=== PATIENT | male | born 1960 | race Caucasian/White ===

== ENCOUNTER 2018-11-20 22:58 | Observation (INO) | payer OTHER ==
[2018-11-20] MEDS ORDERED: Sodium Chloride 0.9% 10 ML Syringe FLUSH PRN (23:10)
--- NOTE | 2018-11-20 23:16 | EDM.PDOC ---
ED HPI GENERAL MEDICAL PROBLEM - General Chief Complaint: Cardiovascular Problem Stated Complaint: CHEST PAIN Time Seen by Provider: 11/20/18 22:58 Source of Information: Reports: Patient, Family, RN History Limitations: Reports: No Limitations - History of Present Illness INITIAL COMMENTS - FREE TEXT/NARRATIVE: 58 yr male presents with chest pain tonight, started while resting, took nitro x 3 tablets and pain was relieved. States the first couple nitro were doses and the last dose was not . EKG with NSR noted. He does have a history of stent and open heart surgery about 6 years ago. Saline lock started. Labs for CBC, troponin, CMP and TSH. is with him and no return of chest pain at this time. - Related Data Allergies Allergy/AdvReac Type Severity Reaction Status Date / Time acetaminophen [From Vicodin] AdvReac Nausea and Verified 11/20/18 23:27 Vomiting codeine AdvReac Nausea and Verified 11/20/18 23:27 Vomiting hydrocodone [From Vicodin] AdvReac Nausea and Verified 11/20/18 23:27 Vomiting Home Meds: Home Meds Aspirin [Adult Low Dose Aspirin EC] 81 mg PO DAILY 11/20/18 [History] Clopidogrel [Plavix] 75 mg PO DAILY 11/20/18 [History] Glucosamine [Glucosamine Sulfate] 500 mg PO DAILY 11/20/18 [History] L.acidoph,Paracasei, B.lactis [Probiotic] 1 cap PO DAILY 11/20/18 [History] Lisinopril 20 mg PO DAILY 11/20/18 [History] Loratadine 10 mg PO DAILY 11/20/18 [History] Montelukast [Singulair] 10 mg PO DAILY 11/20/18 [History] Pantoprazole [ProTONIX Granules] 40 mg PO DAILY 11/20/18 [History] Ubidecarenone [Co Q-10] 100 mg PO DAILY 11/20/18 [History] amLODIPine [Norvasc] 5 mg PO BID 11/20/18 [History] atorvaSTATin [Lipitor] 40 mg PO DAILY 11/20/18 [History] ED ROS GENERAL - Review of Systems Review Of Systems: See Below Constitutional: Reports: No Symptoms HEENT: Reports: No Symptoms Respiratory: Denies: Shortness of Breath, Wheezing Cardiovascular: Reports: Chest Pain. Denies: Dyspnea on Exertion, Edema GI/Abdominal: Reports: No Symptoms Musculoskeletal: Reports: No Symptoms Skin: Reports: No Symptoms Neurological: Reports: No Symptoms Psychiatric: Reports: No Symptoms ED EXAM, GENERAL - Physical Exam Exam: See Below Exam Limited By: No Limitations General Appearance: Alert, No Apparent Distress Ears: Hearing Grossly Normal Throat/Mouth: Normal Voice, No Airway Compromise Head: Atraumatic, Normocephalic Neck: Supple, Non-Tender, Full Range of Motion Respiratory/Chest: No Respiratory Distress, Lungs Clear, Normal Breath Sounds Cardiovascular: Regular Rate, Rhythm, No Edema GI/Abdominal: Soft, Non-Tender Extremities: Normal Inspection, Normal Range of Motion Neurological: Alert, Oriented, Normal Cognition Psychiatric: Normal Affect, Normal Mood Skin Exam: Warm, Dry, Normal Color Course - Vital Signs Last Recorded V/S: Last Vital Signs Temp 97.1 F 11/21/18 05:52 Pulse 86 11/21/18 05:52 Resp 18 11/21/18 05:52 BP 112/66 11/21/18 05:52 Pulse Ox 98 11/21/18 05:52 - Orders/Labs/Meds Orders: Active Orders 24 hr Category Date Time Status EKG Documentation Completion [RC] ASDIRECTED Care 11/20/18 23:05 Active EKG Documentation Completion [RC] ASDIRECTED Care 11/20/18 23:51 Active Sodium Chloride 0.9% [Saline Flush] Med 11/20/18 23:10 Active 10 ml FLUSH ASDIRECTED PRN Saline Lock Insert [OM.PC] Routine Oth 11/20/18 23:10 Ordered Medication Orders Nitroglycerin (Nitrostat) 0.4 mg SL Q5M PRN PRN Reason: Chest Pain Non-Formulary Medication (Amlodipine [Norvasc]) 5 mg PO BID [facility] Non-Formulary Medication (Aspirin [Adult Low Dose Aspirin Ec]) 81 mg PO DAILY [facility] Non-Formulary Medication (Atorvastatin [Lipitor]) 40 mg PO DAILY [facility] Non-Formulary Medication (Clopidogrel [Plavix]) 75 mg PO DAILY [facility] Non-Formulary Medication (Glucosamine [Glucosamine Sulfate]) 500 mg PO DAILY [facility] Non-Formulary Medication (L.Acidoph,Paracasei, B.Lactis [Probiotic]) 1 cap PO DAILY [facility] Non-Formulary Medication (Lisinopril [Lisinopril]) 20 mg PO DAILY [facility] Non-Formulary Medication (Loratadine [Loratadine]) 10 mg PO DAILY [facility] Non-Formulary Medication (Montelukast [Singulair]) 10 mg PO DAILY [facility] Non-Formulary Medication (Pantoprazole [Protonix Granules]) 40 mg PO DAILY [facility] Non-Formulary Medication (Ubidecarenone [Co Q-10]) 100 mg PO DAILY [facility] Sodium Chloride (Saline Flush) 10 ml FLUSH ASDIRECTED PRN PRN Reason: Keep Vein Open Labs: Laboratory Tests 11/20/18 11/20/18 Range/Units 11:00 11:00 WBC 5.8 (4.0-11.0) K/uL RBC 4.89 (4.50-6.50) M/uL Hgb 14.4 (13.0-18.0) g/dL Hct 41.4 (40.0-54.0) % MCV 85 (76-96) fL MCH 29.4 (27.0-32.0) pg MCHC 34.8 (31.0-35.0) g/dL RDW 13.3 (11.0-16.0) % Plt Count 214 (150-400) K/uL MPV 10.2 H (6.0-10.0) fL Neut % (Auto) 59.9 (45.0-70.0) % Lymph % (Auto) 23.8 (20.0-40.0) % [place] % (Auto) 14.2 H (3.0-10.0) % Eos % (Auto) 1.2 (1.0-5.0) % Baso % (Auto) 0.9 H (0.0-0.5) % Neut # (Auto) 3.49 (2.00-7.50) K/uL Lymph # (Auto) 1.39 L (1.50-4.00) K/uL [place] # (Auto) 0.83 H (0.20-0.80) K/uL Eos # (Auto) 0.07 (0.04-0.40) K/uL Baso # (Auto) 0.05 (0.02-0.10) K/uL Sodium 142 (136-145) mmol/L Potassium 4.0 (3.5-5.1) mmol/L Chloride 104 (98-107) mmol/L Carbon Dioxide 26.2 (21.0-32.0) mmol/L Anion Gap 15.8 H (5.0-15.0) mmol/L BUN 24 (8-26) mg/dL Creatinine 1.17 (0.70-1.30) mg/dL Est Cr Clr Drug Dosing TNP Estimated GFR (MDRD) > 60 (>60) MLS/MIN BUN/Creatinine Ratio 20.5 (6-25) Glucose 106 H (74-100) mg/dL Calcium 8.7 (8.5-10.1) mg/dL Total Bilirubin 0.4 (0.0-1.0) mg/dL AST 26 (15-37) U/L ALT 29 (12-78) U/L Alkaline Phosphatase 90 (46-116) U/L Troponin I < 0.017 (0.000-0.060) ng/mL Total Protein 7.5 (6.4-8.2) g/dL Albumin 3.9 (3.4-5.0) g/dL Globulin 3.6 (2.2-4.2) g/dL Albumin/Globulin Ratio 1.1 (0.8-2.0) TSH, Ultra Sensitive 4.619 H (0.358-3.740) uIU/mL Meds: Medications Generic Name Dose Route Start Last Admin Trade Name Freq PRN Reason Stop Dose Admin Nitroglycerin 0.4 mg 11/21/18 00:22 Nitrostat SL Q5M PRN Chest Pain Non-Formulary Medication 5 mg 11/21/18 08:00 Amlodipine [Norvasc] PO BID [facility] Non-Formulary Medication 81 mg 11/21/18 08:00 Aspirin [Adult Low Dose Aspirin Ec] PO DAILY [facility] Non-Formulary Medication 40 mg 11/21/18 20:00 Atorvastatin [Lipitor] PO DAILY [facility] Non-Formulary Medication 75 mg 11/21/18 08:00 Clopidogrel [Plavix] PO DAILY [facility] Non-Formulary Medication 500 mg 11/21/18 08:00 Glucosamine [Glucosamine Sulfate] PO DAILY [facility] Non-Formulary Medication 1 cap 11/21/18 08:00 L.Acidoph,Paracasei, B.Lactis [Probiotic] PO DAILY [facility] Non-Formulary Medication 20 mg 11/21/18 08:00 Lisinopril [Lisinopril] PO DAILY [facility] Non-Formulary Medication 10 mg 11/21/18 08:00 Loratadine [Loratadine] PO DAILY [facility] Non-Formulary Medication 10 mg 11/21/18 08:00 Montelukast [Singulair] PO DAILY [facility] Non-Formulary Medication 40 mg 11/21/18 08:00 Pantoprazole [Protonix Granules] PO DAILY [facility] Non-Formulary Medication 100 mg 11/21/18 08:00 Ubidecarenone [Co Q-10] PO DAILY [facility] Sodium Chloride 10 ml 11/20/18 23:10 Saline Flush FLUSH ASDIRECTED PRN Keep Vein Open - Re-Assessments/Exams Free Text/Narrative Re-Assessment/Exam: 11/21/18 00:02 Troponins are negative and EKG with NSR, will admit to observation with telemetry and saline lock, cardiac diet. Discussed with pt and and state understanding and agree to treatment. Wishes of full code. No return of chest pain since admit to ER, no nausea, no arm pain, no diaphoresis. Departure - Departure Time of Disposition: 00:04 Disposition: Refer to Observation Condition: Good Clinical Impression: Chest pain, History of heart artery stent, Hypertension - My Orders Last 24 Hours: My Active Orders 11/20/18 23:05 EKG Documentation Completion [RC] ASDIRECTED 11/20/18 23:10 Sodium Chloride 0.9% [Saline Flush] 10 ml FLUSH ASDIRECTED PRN Saline Lock Insert [OM.PC] Routine 11/20/18 23:51 EKG Documentation Completion [RC] ASDIRECTED - Assessment/Plan Last 24 Hours: My Active Orders 11/20/18 23:05 EKG Documentation Completion [RC] ASDIRECTED 11/20/18 23:10 Sodium Chloride 0.9% [Saline Flush] 10 ml FLUSH ASDIRECTED PRN Saline Lock Insert [OM.PC] Routine 11/20/18 23:51 EKG Documentation Completion [RC] ASDIRECTED Plan: Admit to observation for chest pain and r/o [place]. Telemetry, saline lock, repeat troponins and EKG at 4am and 8am.
[2018-11-21] MEDS ORDERED: Nitroglycerin 0.4 MG Tab.SL SL PRN (00:22)
[2018-11-21] MEDS ORDERED: PANTOPRAZOLE 40 MG PO SCH (08:00)
[2018-11-21] MEDS ORDERED: Non-Formulary Medication 1 Each (Lisinopril [Lisinopril] 20 MG) PO SCH (08:00)
[2018-11-21] MEDS ORDERED: Non-Formulary Medication 1 Each (Clopidogrel [Plavix] 75 MG) PO SCH (08:00)
[2018-11-21] MEDS ORDERED: ASPIRIN 81 MG PO SCH (08:00)
[2018-11-21] MEDS ORDERED: Non-Formulary Medication 1 Each (Glucosamine [Glucosamine Sulfate] 500 MG) PO SCH (08:00)
[2018-11-21] MEDS ORDERED: Non-Formulary Medication 1 Each (Montelukast [Singulair] 10 MG) PO SCH (08:00)
[2018-11-21] MEDS ORDERED: Non-Formulary Medication 1 Each (Ubidecarenone [Co Q-10] 100 MG) PO SCH (08:00)
[2018-11-21] MEDS ORDERED: Non-Formulary Medication 1 Each (Loratadine [Loratadine] 10 MG) PO SCH (08:00)
[2018-11-21] MEDS ORDERED: Non-Formulary Medication 1 Each (L.Acidoph,Paracasei, B.Lactis [Probiotic] 1 CAP) PO SCH (08:00)
--- NOTE | 2018-11-21 09:04 | PCM.DCSUM1 ---
Discharge Summary - Hospital Course HPI Initial Comments: This 58 yr male was seen in ER last night, chest pain relieved with nitro in route to hospital. Presented to ER by friend and private vehicle. Hx of cardiac stent, hypertension and hyperlipidemia. He is active and has regular follow-up with cardiology and PCP. He does follow a healthy lifestyle, no smoking and no alcohol use. Place on observation and serial troponin and EKG, with this strong hx of CAD and cardiac stent. Diagnosis: Stroke: No - Discharge Data Discharge Date: 11/21/18 Discharge Disposition: Home, Self-Care 01 Condition: Good - Referral to Home Health Primary Care Physician: PCP None - Patient Instructions Diet: Heart Healthy Diet Activity: Rest and Relax Today Driving: May Drive Today Notify Provider of: Increased Pain, Nausea and/or Vomiting - Discharge Plan *PRESCRIPTION DRUG MONITORING PROGRAM REVIEWED*: Not Applicable *COPY OF PRESCRIPTION DRUG MONITORING REPORT IN PATIENT [place]AG[place]: Not Applicable Home Medications: Home Meds Aspirin [Adult Low Dose Aspirin EC] 81 mg PO DAILY 11/20/18 [History] Clopidogrel [Plavix] 75 mg PO DAILY 11/20/18 [History] Glucosamine [Glucosamine Sulfate] 500 mg PO DAILY 11/20/18 [History] L.acidoph,Paracasei, B.lactis [Probiotic] 1 cap PO DAILY 11/20/18 [History] Lisinopril 20 mg PO DAILY 11/20/18 [History] Loratadine 10 mg PO DAILY 11/20/18 [History] Montelukast [Singulair] 10 mg PO DAILY 11/20/18 [History] Pantoprazole [ProTONIX Granules] 40 mg PO DAILY 11/20/18 [History] Ubidecarenone [Co Q-10] 100 mg PO DAILY 11/20/18 [History] amLODIPine [Norvasc] 5 mg PO BID 11/20/18 [History] atorvaSTATin [Lipitor] 40 mg PO DAILY 11/20/18 [History] Patient Handouts: Nonspecific Chest Pain, [id number] Forms: ED Department Discharge Referrals: PCP,None [Primary Care Provider] - - Discharge Summary/Plan Comment DC Time >30 min.: No (Counseled on angina, relieved with nitro. F/U with PCP in next 1-2 week.) Discharge Summary/Plan Comment: Serial Troponins are negative and EKG with NSR, no changes. Keep nitro and take as needed. Chest pain was relieved with nitro. Rest and relax today and follow-up with PCP when return home. Continue medications as at home. - General Info Date of Service: 11/21/18 Admission Dx/Problem (Free Text: chest pain, r/o [place] Functional Status: Reports: Pain Controlled, Tolerating Diet, Urinating - Review of Systems General: Reports: No Symptoms HEENT: Reports: No Symptoms Pulmonary: Reports: No Symptoms Cardiovascular: Denies: Chest Pain, Dyspnea on Exertion, Edema Gastrointestinal: Reports: No Symptoms Musculoskeletal: Reports: No Symptoms Neurological: Reports: No Symptoms - Patient Data Vitals - Most Recent: Last Vital Signs Temp 97.1 F 11/21/18 05:52 Pulse 86 11/21/18 05:52 Resp 18 11/21/18 05:52 BP 112/66 11/21/18 05:52 Pulse Ox 98 11/21/18 05:52 Weight - Most Recent: 176 lb 14.4 oz Lab Results - Last 24 hrs: Laboratory Results - last 24 hr 11/20/18 11/20/18 11/21/18 Range/Units 11:00 11:00 03:50 WBC 5.8 (4.0-11.0) K/uL RBC 4.89 (4.50-6.50) M/uL Hgb 14.4 (13.0-18.0) g/dL Hct 41.4 (40.0-54.0) % MCV 85 (76-96) fL MCH 29.4 (27.0-32.0) pg MCHC 34.8 (31.0-35.0) g/dL RDW 13.3 (11.0-16.0) % Plt Count 214 (150-400) K/uL MPV 10.2 H (6.0-10.0) fL Neut % (Auto) 59.9 (45.0-70.0) % Lymph % (Auto) 23.8 (20.0-40.0) % [place] % (Auto) 14.2 H (3.0-10.0) % Eos % (Auto) 1.2 (1.0-5.0) % Baso % (Auto) 0.9 H (0.0-0.5) % Neut # (Auto) 3.49 (2.00-7.50) K/uL Lymph # (Auto) 1.39 L (1.50-4.00) K/uL [place] # (Auto) 0.83 H (0.20-0.80) K/uL Eos # (Auto) 0.07 (0.04-0.40) K/uL Baso # (Auto) 0.05 (0.02-0.10) K/uL Sodium 142 (136-145) mmol/L Potassium 4.0 (3.5-5.1) mmol/L Chloride 104 (98-107) mmol/L Carbon Dioxide 26.2 (21.0-32.0) mmol/L Anion Gap 15.8 H (5.0-15.0) mmol/L BUN 24 (8-26) mg/dL Creatinine 1.17 (0.70-1.30) mg/dL Est Cr Clr Drug Dosing TNP Estimated GFR (MDRD) > 60 (>60) MLS/MIN BUN/Creatinine Ratio 20.5 (6-25) Glucose 106 H (74-100) mg/dL Calcium 8.7 (8.5-10.1) mg/dL Total Bilirubin 0.4 (0.0-1.0) mg/dL AST 26 (15-37) U/L ALT 29 (12-78) U/L Alkaline Phosphatase 90 (46-116) U/L Troponin I < 0.017 < 0.017 (0.000-0.060) ng/mL Total Protein 7.5 (6.4-8.2) g/dL Albumin 3.9 (3.4-5.0) g/dL Globulin 3.6 (2.2-4.2) g/dL Albumin/Globulin Ratio 1.1 (0.8-2.0) TSH, Ultra Sensitive 4.619 H (0.358-3.740) uIU/mL 11/21/18 Range/Units 08:00 WBC (4.0-11.0) K/uL RBC (4.50-6.50) M/uL Hgb (13.0-18.0) g/dL Hct (40.0-54.0) % MCV (76-96) fL MCH (27.0-32.0) pg MCHC (31.0-35.0) g/dL RDW (11.0-16.0) % Plt Count (150-400) K/uL MPV (6.0-10.0) fL Neut % (Auto) (45.0-70.0) % Lymph % (Auto) (20.0-40.0) % [place] % (Auto) (3.0-10.0) % Eos % (Auto) (1.0-5.0) % Baso % (Auto) (0.0-0.5) % Neut # (Auto) (2.00-7.50) K/uL Lymph # (Auto) (1.50-4.00) K/uL [place] # (Auto) (0.20-0.80) K/uL Eos # (Auto) (0.04-0.40) K/uL Baso # (Auto) (0.02-0.10) K/uL Sodium (136-145) mmol/L Potassium (3.5-5.1) mmol/L Chloride (98-107) mmol/L Carbon Dioxide (21.0-32.0) mmol/L Anion Gap (5.0-15.0) mmol/L BUN (8-26) mg/dL Creatinine (0.70-1.30) mg/dL Est Cr Clr Drug Dosing Estimated GFR (MDRD) (>60) MLS/MIN BUN/Creatinine Ratio (6-25) Glucose (74-100) mg/dL Calcium (8.5-10.1) mg/dL Total Bilirubin (0.0-1.0) mg/dL AST (15-37) U/L ALT (12-78) U/L Alkaline Phosphatase (46-116) U/L Troponin I < 0.017 (0.000-0.060) ng/mL Total Protein (6.4-8.2) g/dL Albumin (3.4-5.0) g/dL Globulin (2.2-4.2) g/dL Albumin/Globulin Ratio (0.8-2.0) TSH, Ultra Sensitive (0.358-3.740) uIU/mL Med Orders - Current: Current Medications Nitroglycerin (Nitrostat) 0.4 mg SL Q5M PRN PRN Reason: Chest Pain Non-Formulary Medication (Amlodipine [Norvasc]) 5 mg PO BID [facility] Non-Formulary Medication (Aspirin [Adult Low Dose Aspirin Ec]) 81 mg PO DAILY [facility] Non-Formulary Medication (Atorvastatin [Lipitor]) 40 mg PO DAILY [facility] Non-Formulary Medication (Clopidogrel [Plavix]) 75 mg PO DAILY [facility] Non-Formulary Medication (Glucosamine [Glucosamine Sulfate]) 500 mg PO DAILY [facility] Non-Formulary Medication (L.Acidoph,Paracasei, B.Lactis [Probiotic]) 1 cap PO DAILY [facility] Non-Formulary Medication (Lisinopril [Lisinopril]) 20 mg PO DAILY [facility] Non-Formulary Medication (Loratadine [Loratadine]) 10 mg PO DAILY [facility] Non-Formulary Medication (Montelukast [Singulair]) 10 mg PO DAILY [facility] Non-Formulary Medication (Pantoprazole [Protonix Granules]) 40 mg PO DAILY [facility] Non-Formulary Medication (Ubidecarenone [Co Q-10]) 100 mg PO DAILY [facility] Sodium Chloride (Saline Flush) 10 ml FLUSH ASDIRECTED PRN PRN Reason: Keep Vein Open - Exam General: Reports: Alert, Oriented, Cooperative, No Acute Distress Lungs: Reports: Normal Respiratory Effort Cardiovascular: Reports: Regular Rate, Regular Rhythm GI/Abdominal Exam: Non-Tender Skin: Reports: Warm, Dry Psy/Mental Status: Reports: Alert, Normal Affect, Normal Mood
[2018-11-21] MEDS ORDERED: Non-Formulary Medication 1 Each (Atorvastatin [Lipitor] 40 MG) PO SCH (20:00)
== END 2018-11-21 09:50 | disposition home or self-care (01) ==
LOC: LB.ED 22:58 → LB.MS 23:57 → UNDOADMOB 11-21 → LB.MS 11-21
PROVIDERS: ADMIT Nurse Practitioner Family; ATTEND Nurse Practitioner Family
DX: R07.9 Chest pain, unspecified (principal); I10 Essential (primary) hypertension; E78.5 Hyperlipidemia, unspecified; I25.10 Atherosclerotic heart disease of native coronary artery without angina pectoris; Z79.82 Long term (current) use of aspirin; Z79.02 Long term (current) use of antithrombotics/antiplatelets; Z88.0 Allergy status to penicillin
CPT/HCPCS: 36415; 80053; 84443; 84484; 85025; 93005; 99285-25; G0378